=== PATIENT | female | born 1990 | race Caucasian/White ===

== ENCOUNTER → 2017-07-17 | Emergency (ER) | payer OTHER ==
[~2017-07-17] VITALS: Ht 165.1 cm; Wt 65.8 kg
[~2017-07-17] MED LIST: MEDROLPACK PO; OMEPRAZOLE10 MG; ZYRTEC10 MG PO
== END | disposition home or self-care (01) ==
LOC: ER 23:20
DX: L50.9 Urticaria, unspecified (principal)